=== PATIENT | female | born 1995 | race Caucasian/White ===

== ENCOUNTER 2020-09-30 19:30 | Emergency (ER) | payer MEDICAID, SELFPAY ==
[2020-09-30 20:12] VITALS: BP 129/67; PULSE 70; RESP 16; TEMP 36.8; O2SAT 96; BMI 32.1
--- NOTE | 2020-09-30 21:00 | ED_ITS ---
HPI - Wound/Laceration General Chief Complaint: Wound/Laceration Stated Complaint: FINGER INJ Time Seen by Provider: 09/30/20 21:00 Source: patient Mode of arrival: ambulatory Limitations: no limitations History of Present Illness HPI narrative: She has a long artificial nails and she was doing some ADLs and her serum with child and accidentally caught the artificial nail on something and lifted partially from the nail bed of the left 5th finger. Nail bed is intact. No bleeding. Onset (ago): hour(s) Extremity Location: left: hand (Fifth finger) Place: home Patient tetanus UTD: Yes Associated symptoms: none Treatments prior to arrival: cold therapy Related Data Allergies Allergy/AdvReac Type Severity Reaction Status Date / Time No Known Allergies Allergy Verified 09/30/20 20:12 [No Known Allergies*] enivormental Allergy Unknown Itching Uncoded 09/30/20 20:12 Review of Systems Review of Systems: Constitutional: No Weight loss, No Fever, No Chills, No Night Sweats, No Fatigue, No Malaise ENT/Mouth: Negative Eyes: Neck negative Cardiovascular: Negative Respiratory: Negative Gastrointestinal: Negative Genitourinary: Negative Musculoskeletal: No joint pain, No Myalgias, No Joint Swelling Skin: No Skin Lesions, No rash Neuro: Negative Psych: No Social Issues Heme/Lymph: Negative Endocrine: Negative Yes all other systems are reviewed and are negative [facility] Social History Social History Smoking Status: Never smoker Advance Directives: No Advance Directives Information Provided: Yes Physical Exam Vital Signs: Vital Signs: Last Vital Signs Temp 98.2 F 09/30/20 20:12 Pulse 70 09/30/20 20:12 Resp 16 09/30/20 20:12 BP 129/67 09/30/20 20:12 Pulse Ox 96 09/30/20 20:12 Body Mass Index 32.1 Reviewed Const: General: cooperative HENMT: Head: Yes normal to inspection Resp: Auscultation: clear to auscultation bilaterally Cardio: Rhythm: regular rhythm Heart sounds: S1 normal heart sound present and S2 normal heart sound present GI: Palpation (GI): Soft to palpation Extrem: Hand/finger images: 1. Slightly raised nail bed with dry blood. Otherwise now intact. No avulsion. She has about inch long artificial nail. She has clippers with her and was able to remove the artificial nail to the f danisha. Course Course Course Narrative: Nail intact. No signs of major trauma to the nail bed. Provided finger splint Discharge Plan Discharge Clinical Impression: Nail bed injury Patient Disposition: Home, Self-Care Instructions: Nail Avulsion (ED) Additional Instructions: Nail was slightly lifted from the nail bed This should heal relatively well There is a possibility that the nail may fall off but is low Keep the splint on for comfort Return if any concerns or worsening symptoms otherwise follow-up with his primary care doctor instructed May use [id number] Tylenol/Motrin as needed or pain Thank you Referrals: ED Physician,Generic [Emergency Provider] - 1 week Stand Alone Forms: Work/School Release
== END 2020-09-30 21:34 | disposition home or self-care (01) ==
PROVIDERS: Emergency Provider Internal Medicine
DX: S61.307A Unspecified open wound of left little finger with damage to nail, initial encounter (principal); W22.8XXA Striking against or struck by other objects, initial encounter; Y93.9 Activity, unspecified; Y92.019 Unspecified place in single-family (private) house as the place of occurrence of the external cause; Y99.9 Unspecified external cause status
CPT/HCPCS: 29130; 99283; 99284